=== PATIENT | female | born 1935 | race Caucasian/White ===

== ENCOUNTER 2021-01-09 17:41 | Emergency (ER) | payer MEDICARE, OTHER ==
[~2021-01-09] VITALS: Ht 157.5 cm; Wt 68.9 kg
--- NOTE | 2021-01-09 18:27 | NUR ---
Pt presents to ED with small head lac to top of head, dried blood present but not currently bleeding. Reports she was getting groceries into her trunk when her trunk fell on top of her head. Drove home and noticed quite a bit of blood. Denies changes in vision, balance. A+Ox4. Medical hx of gallbladder removal and hysterectomy. Strength equal and strong throughout, sensation intact throughout. Cleaned up some of the dried blood and put wet washrag on top of lac.
--- NOTE | 2021-01-09 18:51 | NUR ---
Clement hernandez in [facility] - 01/09/21 at 1851 by CHRIS Jose's husbands phone [phone]
--- NOTE | 2021-01-09 18:54 | NUR ---
Report to RADHIKA Huang.
--- NOTE | 2021-01-09 18:57 | NUR ---
ASSUMED CARE OF PT FROM RADHIKA TAYLOR. PT RESTING IN [facility], MONITORING IN PLACE, DAUGHTER AT BEDSIDE, JUAREZ AT THIS TIME, VLADISLAV.
--- NOTE | 2021-01-09 19:46 | NUR ---
PT RESTING IN [facility], STATES SHE FEELS SHORT OF BREATH, NOTIFIED, PT PLACED ON 2L NC DUE TO O2 SAT OF 80%. PT CURRENTLY ON 2L NC O2 SAT IS 94%. MONITORING CONTINUED, WCTM. DAUGHTER AT BEDSIDE.
[2021-01-09] MEDS ORDERED: ALBUTEROL/IPRATROPIUM 2.5MG/0.5MG, 3 ML ONE (20:23)
[2021-01-09] MEDS ORDERED: ALBUTEROL/IPRATROPIUM 2.5MG/0.5MG, 3 ML NEB ONE (20:30)
[2021-01-09 21:04] VITALS: BP 137/88
== END 2021-01-09 21:21 | disposition home or self-care (01) ==
LOC: ED 21:15
DX: S01.01XA Laceration without foreign body of scalp, initial encounter (principal); S09.90XA Unspecified injury of head, initial encounter; J96.11 Chronic respiratory failure with hypoxia; G89.29 Other chronic pain; W22.8XXA Striking against or struck by other objects, initial encounter; Y93.89 Activity, other specified; Y92.410 Unspecified street and highway as the place of occurrence of the external cause; Y99.8 Other external cause status
CPT/HCPCS: 12001; 70450; 71045; 99284

== ENCOUNTER → 2021-02-28 | Outpatient (CLI) | payer MEDICARE | END | disposition home or self-care (01) | LOC: CVU 12:43 | PROVIDERS: ATTEND Internal Medicine Cardiovascular Disease | DX: I08.8 Other rheumatic multiple valve diseases (principal); I45.10 Unspecified right bundle-branch block; R06.02 Shortness of breath | CPT/HCPCS: 93306 ==

== ENCOUNTER 2021-03-16 12:03 | Outpatient (CLI) | payer MEDICARE ==
[~2021-03-16 12:03] MED LIST: REGADENOSON 0.4 MG/5 ML SYRINGE ONE
== END 2021-03-16 23:59 | disposition home or self-care (01) ==
LOC: CFH 12:03
PROVIDERS: ATTEND Internal Medicine Cardiovascular Disease
DX: Z02.9 Encounter for administrative examinations, unspecified (principal)
CPT/HCPCS: J2785

== ENCOUNTER → 2021-03-17 | Outpatient (CLI) | payer MEDICARE | END | disposition home or self-care (01) | LOC: CFH 07:10 | PROVIDERS: ATTEND Internal Medicine Cardiovascular Disease | DX: I45.10 Unspecified right bundle-branch block (principal); R06.02 Shortness of breath; I50.9 Heart failure, unspecified | CPT/HCPCS: 78452; 93017; A9502; J2785 ==